=== PATIENT | female | born 1940 | race Caucasian/White ===

== ENCOUNTER → 2021-10-12 | Outpatient (CLI) | payer MEDICARE, OTHER ==
[~2021-10-12] MED LIST: DILTIAZEM 12HR90 MG PO; ECOTRIN81 MG PO; FISH OIL 1,0001 EAC5 PO; TAPAZOLE5 MG PO; VITAMIN D31000 UNIT PO
== END ==
LOC: KOH-I 10-09 11:00
DX: E04.9 Nontoxic goiter, unspecified (principal)
CPT/HCPCS: 76536